=== PATIENT | female | born 2000 | race Caucasian/White ===

== ENCOUNTER 2025-04-27 22:56 | Observation (INO) | payer MEDICAID ==
--- NOTE | 2025-04-28 00:06 | DVH ---
ABDOMINAL ULTRASOUND CLINICAL HISTORY: r/o gallstones TECHNIQUE: Multiple grayscale and color Doppler ultrasound images were obtained of the abdomen. WID: COMPARISON: None FINDINGS: Liver and Biliary System: Increased echogenicity, Mildly Enlarged measuring 18.2 cm. No focal hepat ic observations. No intrahepatic bile duct dilatation. The common duct measures 0.4 cm at the tyson hepatis. The gallbladder is contracted with wall measuring 3.8 mm. No cholelithiasis or sludge. S onographic Chavez's sign is negative. Pancreas: Not well seen due to overlying bowel gas Kidneys: The right kidney is 10.4 cm . No hydronephrosis, increased echogenicity, shadowing stone, or focal lesion. IMPRESSION: 1. Mild hepatomegaly with hepatic steatosis. 2. No acute cholecystitis or biliary ductal dilatation. 3. No right hydronephrosis.
[2025-04-28] MEDS ORDERED: PREN-96 PO (00:42)
--- NOTE | 2025-04-28 01:33 | DVHDS2 ---
Physician Discharge Progress N Final Diagnosis: Mild hepatomegaly with hepatic steatosis Secondary Diagnosis: with IUP at 34w2d Problems List: (1) Acute fatty liver of in third trimester Operations or Procedures: Operations or Procedures SUBJECTIVE Cherelle Millan is a 24 yo with IUP at 34w2d presenting with upper R quadrant pain Patient states that around 1900 she began to experience intense pain in her upper R abdominal quadrant. She describes it as sharp and constant. Denies blurry vision or other vision changes, denies nausea, and denies headache. Patient states she ate very poorly today. She had cook islander toast sticks and pancakes for breakfast and country friend chicken for dinner. Denies feeling any UCs, denies leaking fluid, denies vaginal bleeding, and states positive movement. Patient was worried it could be pre-eclampsia LMP: 08/31/24 EDC: 06/07/25 Review of Systems: Neuro: No complaints Heart: No complaints Lungs: No complaints GI: 8/10 sharp pain in upper R quadrant : No complaints Skin: No complaints Extremities: No complaints OBJECTIVE VSS FHR: Baseline: 145 Variability: Moderate Accelerations: Present Decelerations: Absent Category: 1 UCs: none noted Neuro: A&O x4. No apparent distress. Affect appropriate Heart: Regular rate and rhythm Lungs: Clear bilaterally GI: Gravid. Tenderness in upper R quadrant Skin: Dry and intact. No rashes or lesions Extremities: Cap refill WNL. Abdominal US performed: See US report ASSESSMENT 24 yo with IUP at 34w2d Not in labor Category 1 Tracing Fatty liver PLAN -Extensively discussed fatty liver and appropriate diet/lifestyle to alleviate symptoms. Discussed pre-eclampsia warning signs. Answered all patient questions and concerns. -Discussed labor precautions and kick counts. Answered all patient questions and concerns. Patient verbalizes understanding Other Interventions Other Interventions ABDOMINAL ULTRASOUND CLINICAL HISTORY: r/o gallstones TECHNIQUE: Multiple grayscale and color Doppler ultrasound images were obtained of the abdomen. WID: COMPARISON: None FINDINGS: Liver and Biliary System: Increased echogenicity, Mildly Enlarged measuring 18.2 cm. No focal hepatic observations. No intrahepatic bile duct dilatation. The common duct measures 0.4 cm at the tyson hepatis. The gallbladder is contracted with wall measuring 3.8 mm. No cholelithiasis or sludge. Sonographic Chavez's sign is negative. Pancreas: Not well seen due to overlying bowel gas Kidneys: The right kidney is 10.4 cm . No hydronephrosis, increased echogenicity, shadowing stone, or focal lesion. IMPRESSION: 1. Mild hepatomegaly with hepatic steatosis. 2. No acute cholecystitis or biliary ductal dilatation. 3. No right hydronephrosis. Condition on Discharge: Good Disposition: Home Discharge Instructions: Diet: See Comment (Low fat) Diet comment: low fat Activity: No Restrictions, As Tolerated Follow Up/Referral: KEEP CURRENT APPOINTMENT WITH DR PANIAGUA Medications: CONTINUE TAKING ALL CURRENT MEDICATIONS Follow Up Care: Discharge Statement: "Patient was advised to return to the ER or call 911 if any headaches, dizziness, shortness of breath, chest pain, abdominal pain, bleeding, fevers, or worsening of medical condition. Patient was counseled about treatment plan, medications, possible side effects, patientverbalized understanding. All questions were answered to the best of my ability. This discharge took greater then 30 minutes in planning, reviewing documentation, counseling the patient, and discussing with other team members." Visit Coding OBGYN Date of Service: Apr 28, 2025 Billing Provider: LSI ANN CNM OPERATIONS SUPERVISOR 2ND SHIFT Common Visit Codes: [id number] INP/OBS CARE (HIGH) OPERATIONS SUPERVISOR 2ND SHIFT Procedure Codes: 94322-28- NON-STRESS TEST LIS ANN CNM Apr 28, 2025 01:33
== END 2025-04-28 00:52 | disposition home or self-care (01) ==
LOC: LDRP 22:56
PROVIDERS: ADMIT Obstetrics & Gynecology; ATTEND Obstetrics & Gynecology
DX: O26.613 Liver and biliary tract disorders in pregnancy, third trimester (principal); K76.0 Fatty (change of) liver, not elsewhere classified; Z3A.34 34 weeks gestation of pregnancy; Z98.890 Other specified postprocedural states
CPT/HCPCS: 59025; 76705; 81002; 94760; G0378

== ENCOUNTER 2025-05-24 08:29 | Observation (INO) | payer MEDICAID ==
[~2025-05-24 08:29] MED LIST: PREN-96 PO
[2025-05-24 08:56] LABS: Hematocrit 38.1 % (36.0-46.0); Hemoglobin 12.9 g/dL (12.2-16.2); Mean Corpuscular Hemoglobin 29.1 pg (28.0-32.0); Mean Corpuscular Volume 86.0 fL (80.0-100.0); Nucleated Red Blood Cells % 0.0 %
[2025-05-24 08:59] LABS: Urine Protein, UAD Negative (Negative)
[2025-05-24 09:09] LABS: Protein, Urine 16.6 mg/dL (1-14)
[2025-05-24 09:14] LABS: Albumin 4.0 g/dL (3.2-4.8); Anion Gap 13 (5-15); Calcium 9.3 mg/dL (8.7-10.4); Carbon Dioxide 22 mmol/L (20-31); Chloride 102 mmol/L (98-107); Potassium 3.9 mmol/L (3.5-5.1); Sodium 137 mmol/L (136-145); Total Protein 7.5 g/dL (5.7-8.2); Uric Acid 4.4 mg/dL (3.1-7.8)
[2025-05-24 09:15] LABS: Bilirubin, Total 0.3 mg/dL (0.2-1.0)
[2025-05-24 09:16] LABS: Alanine Aminotransferase < 9 U/L (7-40); Alkaline Phosphatase 220 U/L (46-116); BUN/Creatinine Ratio 10.2 (10.0-20.0); Blood Urea Nitrogen < 5 mg/dL (9-23); Glucose 120 mg/dL (74-106)
[2025-05-24 09:17] LABS: INR 0.94 (0.9-1.15); Partial Thromboplastin Time 26.0 SEC (24.5-34.5); Prothrombin Time 10.0 sec (9.3-11.8)
--- NOTE | 2025-05-24 09:35 | DVH ---
BIOPHYSICAL PROFILE HISTORY: PIH TECHNIQUE: Multiple transabdominal real-time grayscale sonographic images through the gravid uterus of the fetus with duplex Doppler color flow and M-mode spectral analysis FINDINGS: BIOPHYSICAL PROFILE: breathing score: 2 movement score: 2 tone score: 2 Quantitative CARIN score: 2 (CARIN: 18 Cm.) Total score: 8 The cervix is closed and measures 3.7 cm. Single live fetus in cephalic presentation. heart rate 148 beats per minute. Grade 2 anterior placenta without previa or abruption IMPRESSION: Biophysical profile score: 8
--- NOTE | 2025-05-24 12:51 | DVHDS2 ---
Physician Discharge Progress N Final Diagnosis: pih Operations or Procedures: Operations or Procedures nst reactive reviwed,sono Condition on Discharge: Good Disposition: Home Discharge Instructions: Diet: Regular Activity: No Restrictions, As Tolerated Medications: na Follow Up Care: Specialist: 2d for induction Discharge Statement: "Patient was advised to return to the ER or call 911 if any headaches, dizziness, shortness of breath, chest pain, abdominal pain, bleeding, fevers, or worsening of medical condition. Patient was counseled about treatment plan, medications, possible side effects, patientverbalized understanding. All questions were answered to the best of my ability. This discharge took greater then 30 minutes in planning, reviewing do cumentation, counseling the patient, and discussing with other team members." Visit Coding OBGYN Date of Service: May 24, 2025 Billing Provider: EMERALD PANIAGUA DO EMERGENCY VETERINARY TECHNICIAN Common Visit Codes: [id number] OBS CARE (HIGH) EMERGENCY VETERINARY TECHNICIAN Procedure Codes: 51117-93- NON-STRESS TEST EMERALD PANIAGUA DO May 24, 2025 12:51
== END 2025-05-24 11:00 | disposition home or self-care (01) ==
LOC: LDRP 08:29
PROVIDERS: ADMIT Obstetrics & Gynecology; ATTEND Obstetrics & Gynecology
DX: O13.3 Gestational [pregnancy-induced] hypertension without significant proteinuria, third trimester (principal); Z3A.38 38 weeks gestation of pregnancy; Z98.890 Other specified postprocedural states
CPT/HCPCS: 36415; 59025; 76819; 80053; 81001; 81002; 82570; 84156; 84550; 85025; 85610; 85730; 94760; G0378

== ENCOUNTER 2025-05-26 03:13 | Inpatient (IN) | payer MEDICAID ==
[~2025-05-26] VITALS: Ht 157.5 cm; Wt 88.9 kg
[2025-05-26] MEDS ORDERED: NALBUPHINE HCL 10 MG/1ml INJECTION IV PRN (04:30)
[2025-05-26] MEDS ORDERED: NALBUPHINE HCL 10 MG/1ml INJECTION IM PRN (04:30)
[2025-05-26] MEDS ORDERED: LIDOCAINE 2%HCL (LOCAL ANESTH.) INJ 20ML MDV IJ PRN (04:30)
[2025-05-26] MEDS: LACTATED RINGER'S 1,000 ML IV SCH (05:05)
[2025-05-26 05:17] LABS: Amphetamine Screen, Urine Neg (NEGATIVE); Barbiturate Scree,Urine Neg (NEGATIVE); Benzodiazephine Screen, Urine Neg (NEGATIVE); Cannabinoid Screen, Urine Neg (NEGATIVE); Cocaine Screen, Urine Neg (NEGATIVE); Opiate Scree,Urine Neg (NEGATIVE); Phencyclidine Screen, Urine Neg (NEGATIVE)
[2025-05-26 05:23] LABS: Fern Testing Positive
[2025-05-26 05:28] LABS: Urine Protein, UAD TRACE (Negative)
[2025-05-26] MEDS: DERMOPLAST 60ML BOTTLE TOP PRN (05:35)
[2025-05-26] MEDS: PHISODERM TOP SOLN 240ML BTL TOP PRN (05:35)
[2025-05-26] MEDS: WITCH HAZEL-GLYCERIN PAD TOP PRN (05:35)
[2025-05-26 05:40] LABS: Hematocrit 36.5 % (36.0-46.0); Hemoglobin 12.7 g/dL (12.2-16.2); Mean Corpuscular Hemoglobin 29.8 pg (28.0-32.0); Mean Corpuscular Volume 85.9 fL (80.0-100.0); Nucleated Red Blood Cells % 0.2 %
--- NOTE | 2025-05-26 05:47 | DVHHP2 ---
OB CC & HPI Date Date of Admission: May 26, 2025 Patient Identification: : 2 Para: 1 EDC: Jun 07, 2025 EGA: 38w 2d Chief Complaints: Reason for admission: rupture of membranes Other reason for admission: Contractions Admission Nurse Assessment Rev: Yes History of Present Complaints > 24yo G2, 1001 at 38weeks EGA presents with report of leakage of fluid at 01:00 today. > Normal FM, no SALCIDO, vision changes or epigastric pain > Had care with Dr. Keen > complicated by Intrahepatic cholestasis of ; scheduled to come in for IOL today at 10:00 > latest US EFW on 05/24/25 7Lbs 5oz Past Medical History Cardiac: No pertinent Hx Pulmonary: No pertinent Hx Central Nervous System: No pertinent Hx GI: No pertinent Hx Hemotology/Oncology: No pertinent Hx Hepatobiliary: No pertinent Hx Psychiatric: No pertinent Hx Musculoskeletal: No pertinent Hx Rheumotologic: No pertinent Hx Infectious Disease: No peritnent Hx ENT: No pertinent Hx Renal/: No pertinent Hx Endocrine: No pertinent Hx Dermatology: No pertinent Hx Past Surgical History: No pertinent Hx OB History OB History Care: Good Care Ultrasounds: Normal mid trimester US Obstetrical Complications: None, Other (ICP) Medical Complications: None Other Concerns: Intrahepatic Cholestasis of Allergies: Coded Allergies: NO KNOWN ALLERGIES (Unverified , 05/26/25) Home Meds Reported Medications Vit W/ Ferrous Fumara ( One Daily) Daily Tab, 1 TAB PO DAILY, #90 TAB 3 Refills 04/28/25 Current Medications Current Medications Medications (Trade) Dose Ordered Sig/Zac Route PRN Reason Start Time Stop Time Status Last Admin Lactated Ringer's 1,000 ml @ 125 mls/hr Q8H IV 05/26/25 04:30 05/26/25 05:05 Nalbuphine HCl (Nubain) 10 mg Q4HP PRN IM MODERATE PAIN (4-6 PAIN SCALE) 05/26/25 04:30 Nalbuphine HCl (Nubain) 10 mg Q4HP PRN IV MODERATE PAIN (4-6 PAIN SCALE) 05/26/25 04:30 Witch Draa (Tucks) 1 pad PRN PRN TOP PERINEAL AREA DISCOMFORT 05/26/25 04:30 Sodium Lauryl Sulfate (Phisoderm) 240 ml PRN PRN TOP PERINEAL AREA DISCOMFORT 05/26/25 04:30 Benzocaine (Dermoplast) 1 applic PRN PRN TOP PERINEAL AREA DISCOMFORT 05/26/25 04:30 Lidocaine HCl (Xylocaine) 40 ml ONCE PRN IJ PERINEAL AREA DISCOMFORT 05/26/25 04:30 Family & Social History Family/Social History Past Family/Social History: Non pertinent Blood Type: O+ Rubella: immune RPR/VDRL: Negative GBS Status: Negative HBsAG: Negative Review of Systems Constitutional: No symptom reported Ears, Nose, & Throat: No symptom reported Eyes: No symptom reported Pulmonary/Respiratory: No symptom reported Cardiovascular: No symptom reported Gastrointestinal: No symptom reported Genitourinary: No symptom reported Musculoskeletal: No symptom reported Skin: No symptom reported Psychiatric: No symptom reported Endocrine: No symptom reported Hemotologic/Lymphatic: No symptom reported OB Admission Exam Physical Exam Vitals: VSS, see Nursing documentation HEENT: TMs Normal, Fontanelles Normal, Nasal Mucosa Normal, Eyes non-injected, Oropharynx Normal, PERRLA, Moist Membranes, EOMI Heart: Rhythm Normal Lungs: Clear Abdomen: Gravid (Non-tender topalpation) Extremities: Normal Reflexes: Normal Cervical Dilatation: 1cm Station: -3 Membranes: Ruptured Amniotic Fluid: Clear Heart Rate: 130's Decelerations: No Decelerations Research Consultant Variability: Average (6-25) Contractions on Admission: < 5 Minutes Apart Date/Time Contractions Began: 05/26/25 03:00 Frequency of Contractions: 2-5 Duration: 70 Intensity: Mild OB Plan Plan Admitting Diagnosis: IUP at 38w 2d ICP Rupture of Membrane Plan: Expectant Management, Other (Cervical ripening and augmentation if and when indcated /needed) Other Plan: Informed consent obtained. Risk of pain, bleeding, infection, discussed with the patient and partner Consent for possible blood transfusion obtained. All questions answered. Admit to Place Routine L&D admission orders Misoprostol per protocol if contractions space out EFM per policy & protocol Intrauterine resuscitation PRN Labor analgesia PRN Encourage frequent position change and ambulation to facilitate labor & descent Supportive Care Anticipate Visit Coding OBGYN Date of Service: May 26, 2025 Billing Provider: BAYLEE GE CNM SINGLE NEEDLE TUFTING MACHINE OPERATOR Common Visit Codes: [id number] INP/OBS CARE (HIGH) BAYLEE GE CNM May 26, 2025 05:47
[2025-05-26 06:01] LABS: INR 0.91 (0.9-1.15); Partial Thromboplastin Time 27.4 SEC (24.5-34.5); Prothrombin Time 9.7 sec (9.3-11.8)
[2025-05-26 06:31] LABS: Albumin 3.8 g/dL (3.2-4.8); Anion Gap 13 (5-15); BUN/Creatinine Ratio 19.4 (10.0-20.0); Bilirubin, Total 0.4 mg/dL (0.2-1.0); Glucose 81 mg/dL (74-106); Total Protein 7.3 g/dL (5.7-8.2)
[2025-05-26 06:32] LABS: Alkaline Phosphatase 211 U/L (46-116); Blood Urea Nitrogen 7 mg/dL (9-23); Carbon Dioxide 19 mmol/L (20-31); Chloride 106 mmol/L (98-107); Potassium 3.7 mmol/L (3.5-5.1); Sodium 138 mmol/L (136-145)
[2025-05-26 06:33] LABS: Alanine Aminotransferase < 9 U/L (7-40); Calcium 8.7 mg/dL (8.7-10.4)
--- NOTE | 2025-05-26 07:00 | DVHPN2 ---
Chief Complaints Patient reports: No new complaints Nursing reports: No new complaints Objective Medications Current Medications Medications (Trade) Dose Ordered Sig/Zac Route PRN Reason Start Time Stop Time Status Last Admin Benzocaine (Dermoplast) 1 applic PRN PRN TOP PERINEAL AREA DISCOMFORT 05/26/25 04:30 05/26/25 05:35 Lactated Ringer's 1,000 ml @ 125 mls/hr Q8H IV 05/26/25 04:30 05/26/25 05:05 Lidocaine HCl (Xylocaine) 40 ml ONCE PRN IJ PERINEAL AREA DISCOMFORT 05/26/25 04:30 Nalbuphine HCl (Nubain) 10 mg Q4HP PRN IM MODERATE PAIN (4-6 PAIN SCALE) 05/26/25 04:30 Nalbuphine HCl (Nubain) 10 mg Q4HP PRN IV MODERATE PAIN (4-6 PAIN SCALE) 05/26/25 04:30 Sodium Lauryl Sulfate (Phisoderm) 240 ml PRN PRN TOP PERINEAL AREA DISCOMFORT 05/26/25 04:30 05/26/25 05:35 Witch Dara (Tucks) 1 pad PRN PRN TOP PERINEAL AREA DISCOMFORT 05/26/25 04:30 05/26/25 05:35 Others VE-1CM/40/-3 CLEAR FLD Studies Laboratory Tests 05/26/25 04:55 Test 05/26/25 04:55 Range/Units Serum Glucose 81 74-106 mg/dL Ass/Plan Assessment SROM Plan SROM Visit Coding OBGYN Date of Service: May 26, 2025 Billing Provider: EMERALD PANIAGUA DO MANAGER OF BUSINESS OPERATIONS Common Visit Codes: [id number] INP/OBS CARE (HIGH) MANAGER OF BUSINESS OPERATIONS Procedure Codes: 64734-77- NON-STRESS TEST EMERALD PANIAGUA DO May 26, 2025 07:00
[2025-05-26] MEDS: ceFAZolin 1GM/50ML 50 ML IV SCH (09:39)
[2025-05-26] MEDS ORDERED: NALOXONE HCL 0.4 MG/ML VIAL IV ONE (16:00)
--- NOTE | 2025-05-26 16:13 | DVHPN2 ---
Chief Complaints Patient reports: No new complaints Nursing reports: No new complaints Objective Medications Current Medications Medications (Trade) Dose Ordered Sig/Zac Route PRN Reason Start Time Stop Time Status Last Admin Benzocaine (Dermoplast) 1 applic PRN PRN TOP PERINEAL AREA DISCOMFORT 05/26/25 04:30 05/26/25 05:35 Cefazolin Sodium 50 ml @ 100 mls/hr Q8H IV 05/26/25 09:15 05/26/25 09:39 Lactated Ringer's 1,000 ml @ 125 mls/hr Q8H IV 05/26/25 04:30 05/26/25 12:44 Lidocaine HCl (Xylocaine) 40 ml ONCE PRN IJ PERINEAL AREA DISCOMFORT 05/26/25 04:30 Misoprostol (Cytotec) 50 mcg Q4HPRN PRN PO CERVICAL RIPENING 05/26/25 10:15 05/26/25 14:43 Nalbuphine HCl (Nubain) 10 mg Q4HP PRN IM MODERATE PAIN (4-6 PAIN SCALE) 05/26/25 04:30 Nalbuphine HCl (Nubain) 10 mg Q4HP PRN IV MODERATE PAIN (4-6 PAIN SCALE) 05/26/25 04:30 Sodium Lauryl Sulfate (Phisoderm) 240 ml PRN PRN TOP PERINEAL AREA DISCOMFORT 05/26/25 04:30 05/26/25 05:35 Witch Dara (Tucks) 1 pad PRN PRN TOP PERINEAL AREA DISCOMFORT 05/26/25 04:30 05/26/25 05:35 Others ve-4cm/60/-2 Studies Laboratory Tests 05/26/25 04:55 Test 05/26/25 04:55 Range/Units Serum Glucose 81 74-106 mg/dL Ass/Plan Assessment SROM Plan getting epidural supportive care Visit Coding OBGYN Date of Service: May 26, 2025 Billing Provider: EMERALD PANIAGUA DO SEWING TECHNIQUES DEMONSTRATOR Common Visit Codes: [id number] OBS CARE (HIGH) SEWING TECHNIQUES DEMONSTRATOR Procedure Codes: 57132-73- NON-STRESS TEST EMERALD PANIAGUA DO May 26, 2025 16:13
[2025-05-26] MEDS: ROPIVACAINE HCL 100 ML ONE ×2 (16:28→23:05)
--- NOTE | 2025-05-26 20:48 | DVHPN2 ---
CNM Labor Progress Note Date and Time Seen Date Seen: May 26, 2025 Time Seen: 20:00 Subjective Patient reports: No new complaints Subjective Comment HPI: 24yo (0,0,0,0)IUP@38.2wks Admitted for PROM 05/26/2025 @ 0200 Misoprostol 50 mcg X2 given currently Received and epidural for pain management Monitoring Method Monitoring Method: External Heart Rate Heart Rate Baseline: 145 Heart Rate Variability: Moderate Presence of FHR Accelerations: Yes Presence of FHR Decelerations: No Changes in Trends of Patterns: No Are all 5 Components of the FH: Yes Contractions Contractions Frequency: Other Duration of Contraction: 90 Contractions Intensity: Moderate Contractions Resting Tone: Relaxed Membranes Membranes: Ruptured Amniotic Fluid Color: Clear Vaginal Exam Vag Exam Deferred: Yes Vaginal Exam Presentation: VTX Medications Medications - Pitocin: No Medication - Epidural: Yes Medication - Other Misoprostol 50 mcg X2 doses Lab Results Lab Results Current Medications Medications (Trade) Dose Ordered Sig/Zac Start Time Stop Time Status Last Admin Dose Admin Lactated Ringer's 1,000 ml @ 125 mls/hr Q8H 05/26/25 04:30 05/26/25 17:27 125 MLS/HR Nalbuphine HCl (Nubain) 10 mg Q4HP PRN 05/26/25 04:30 Nalbuphine HCl (Nubain) 10 mg Q4HP PRN 05/26/25 04:30 Witch Dara (Tucks) 1 pad PRN PRN 05/26/25 04:30 05/26/25 05:35 1 PAD Sodium Lauryl Sulfate (Phisoderm) 240 ml PRN PRN 05/26/25 04:30 05/26/25 05:35 240 ML Benzocaine (Dermoplast) 1 applic PRN PRN 05/26/25 04:30 05/26/25 05:35 1 APPLIC Lidocaine HCl (Xylocaine) 40 ml ONCE PRN 05/26/25 04:30 Oxytocin 500 ml @ 999 mls/hr Q31M ONCE 05/26/25 04:30 05/26/25 05:00 DC Oxytocin 500 ml @ 125 mls/hr Q4H ONCE 05/26/25 05:00 05/26/25 08:59 DC Cefazolin Sodium 50 ml @ 100 mls/hr Q8H 05/26/25 09:15 05/26/25 17:23 100 MLS/HR Misoprostol (Cytotec) 50 mcg Q4HPRN PRN 05/26/25 10:15 05/26/25 14:43 50 MCG Naloxone HCl (Narcan) 0.2 mg PRN ONCE 05/26/25 16:00 05/26/25 16:01 DC Ephedrine Sulfate (ePHEDrine SULFATE) 10 mg PRN ONCE 05/26/25 16:00 05/26/25 16:01 DC Laboratory Tests Test 05/26/25 04:55 05/26/25 04:00 Range/Units White Blood Count 11.1 H 4.4-10.8 10^3/uL Red Blood Count 4.25 4.0-5.20 10^6/uL Hemoglobin 12.7 12.2-16.2 g/dL Hematocrit 36.5 36.0-46.0 % Mean Corpuscular Volume 85.9 80.0-100.0 fL Mean Corpuscular Hemoglobin 29.8 28.0-32.0 pg Mean Corpuscular Hemoglobin Concent 34.7 32.0-36.0 g/dL Red Cell Distribution Width 14.1 11.8-14.3 % Platelet Count 228 140-450 10^3/uL Mean Platelet Volume 8.5 6.9-10.8 fL Neutrophils (%) (Auto) 70.9 37.0-80.0 % Lymphocytes (%) (Auto) 22.3 10.0-50.0 % Monocytes (%) (Auto) 5.8 0.0-12.0 % Eosinophils (%) (Auto) 0.8 0.0-7.0 % Basophils (%) (Auto) 0.2 0.0-2.0 % Neutrophils # (Auto) 7.9 1.6-8.6 10 ^3/uL Lymphocytes # (Auto) 2.5 0.4-5.4 10 ^3/uL Monocytes # (Auto) 0.6 0-1.3 10 ^3/uL Eosinophils # (Auto) 0.1 0-0.8 10 ^3/uL Basophils # (Auto) 0 0-0.2 10 ^3/uL Nucleated Red Blood Cells 0.2 % Prothrombin Time 9.7 9.3-11.8 sec Prothrombin Time INR 0.91 0.9-1.15 Activated Partial Thromboplast Time 27.4 24.5-34.5 SEC Sodium Level 138 136-145 mmol/L Potassium Level 3.7 3.5-5.1 mmol/L Chloride Level 106 98-107 mmol/L Carbon Dioxide Level 19 L 20-31 mmol/L Anion Gap 13 5-15 Blood Urea Nitrogen 7 L 9-23 mg/dL Creatinine 0.36 L 0.550-1.02 mg/dL Glomerular Filtration Rate Calc 144 >90 mL/min BUN/Creatinine Ratio 19.4 10.0-20.0 Serum Glucose 81 74-106 mg/dL Calcium Level 8.7 8.7-10.4 mg/dL Total Bilirubin 0.4 0.2-1.0 mg/dL Aspartate Amino Transferase (AST) 9 L 13-40 U/L Alanine Aminotransferase (ALT) < 9 7-40 U/L Alkaline Phosphatase 211 H 46-116 U/L Total Protein 7.3 5.7-8.2 g/dL Albumin 3.8 3.2-4.8 g/dL Treponema pallidum Antibody Non-reactive Negative Hepatitis C Antibody Negative Negative Urine Color Light-yellow Yellow Urine Clarity Turbid H Clear Urine pH 7.0 5.0-9.0 Urine Specific [place] 1.025 1.001-1.035 Urine Protein Trace H Negative Urine Ketones Negative Negative Urine Blood Trace H Negative /uL Urine Nitrite Negative Negative Urine Bilirubin Negative Negative Urine Urobilinogen Normal Negative mg/dL Urine Leukocyte Esterase 1+ Negative /uL Urine RBC 17 0 - 4 /hpf Urine Microscopic WBC 32 H 0-5 /HPF Urine Squamous Epithelial Cells Mod <5 /hpf Urine Bacteria None seen None Seen /hpf Urine Mucus Few None Seen Urine Glucose Normal Normal mg/dL Amniotic Fluid Ferning Test Positive Placental Urqui-6-Dujztqprkpnno Positive Urine Opiates Screen Neg NEGATIVE Urine Fentanyl Screen Neg NEGATIVE Urine Barbiturates Screen Neg NEGATIVE Urine Phencyclidine Screen Neg NEGATIVE Urine Amphetamines Screen Neg NEGATIVE Urine Benzodiazepines Screen Neg NEGATIVE Urine Cocaine Screen Neg NEGATIVE Urine Cannabinoids Screen Neg NEGATIVE Assessment Assessment Assessment 24yo IUP@38.2wks PROM @ 0200 05/26/25 Category I EFM Epidural for pain Ancef 2 gm Q8H / 2 doses given Uterine contractions every 2-3 min Unable to continue misoprostal GBS negative Plan Reevaluate @ 2300 Placed IUPC if possible Continue with ANBX Anticipate Plan Plan discussed with: Patient Visit Coding OBGYN Date of Service: May 26, 2025 Billing Provider: SUMIT GARCIA CNM TENDER LABOR Common Visit Codes: [id number] INP/OBS CARE (HIGH) SUMIT GARCIA CNMNov 2024 20:48
--- NOTE | 2025-05-26 23:04 | DVHPN2 ---
CNM Labor Progress Note Date and Time Seen Date Seen: May 26, 2025 Time Seen: 22:55 Subjective Patient reports: No new complaints Subjective Comment HPI: 24yo (0,0,0,0)IUP@38.2wks Admitted for PROM 05/26/2025 @ 0200 Misoprostol 50 mcg X2 given currently Received and epidural for pain management At bedside for IUPC Placement Monitoring Method Monitoring Method: Internal, External Heart Rate Heart Rate Baseline: 145 Heart Rate Variability: Moderate Presence of FHR Accelerations: Yes Presence of FHR Decelerations: No Changes in Trends of Patterns: No Are all 5 Components of the FH: Yes Contractions Contractions Frequency: Other Duration of Contraction: 90 Contractions Intensity: Moderate Contractions Resting Tone: Relaxed If NO What Corrective Measures: IUPC Placed Membranes Membranes: Ruptured Amniotic Fluid Color: Clear Vaginal Exam Vag Exam Deferred: Yes Vaginal Exam Dilation: 4 Vaginal Exam Effacement: 70 Vaginal Exam Station: 0 Vaginal Exam Presentation: VTX Vaginal Exam Show: Moderate Medications Medications - Pitocin: No Medication - Epidural: Yes Medication - Other Misoprostol 50 mcg oral X2 doses Lab Results Lab Results Current Medications Medications (Trade) Dose Ordered Sig/Zac Start Time Stop Time Status Last Admin Dose Admin Lactated Ringer's 1,000 ml @ 125 mls/hr Q8H 05/26/25 04:30 05/26/25 17:27 125 MLS/HR Nalbuphine HCl (Nubain) 10 mg Q4HP PRN 05/26/25 04:30 Nalbuphine HCl (Nubain) 10 mg Q4HP PRN 05/26/25 04:30 Martine Diamond (Tucks) 1 pad PRN PRN 05/26/25 04:30 05/26/25 05:35 1 PAD Sodium Lauryl Sulfate (Phisoderm) 240 ml PRN PRN 05/26/25 04:30 05/26/25 05:35 240 ML Benzocaine (Dermoplast) 1 applic PRN PRN 05/26/25 04:30 05/26/25 05:35 1 APPLIC Lidocaine HCl (Xylocaine) 40 ml ONCE PRN 05/26/25 04:30 Oxytocin 500 ml @ 999 mls/hr Q31M ONCE 05/26/25 04:30 05/26/25 05:00 DC Oxytocin 500 ml @ 125 mls/hr Q4H ONCE 05/26/25 05:00 05/26/25 08:59 DC Cefazolin Sodium 50 ml @ 100 mls/hr Q8H 05/26/25 09:15 05/26/25 17:23 100 MLS/HR Misoprostol (Cytotec) 50 mcg Q4HPRN PRN 05/26/25 10:15 05/26/25 14:43 50 MCG Naloxone HCl (Narcan) 0.2 mg PRN ONCE 05/26/25 16:00 05/26/25 16:01 DC Ephedrine Sulfate (ePHEDrine SULFATE) 10 mg PRN ONCE 05/26/25 16:00 05/26/25 16:01 DC Laboratory Tests Test 05/26/25 04:55 05/26/25 04:00 Range/Units White Blood Count 11.1 H 4.4-10.8 10^3/uL Red Blood Count 4.25 4.0-5.20 10^6/uL Hemoglobin 12.7 12.2-16.2 g/dL Hematocrit 36.5 36.0-46.0 % Mean Corpuscular Volume 85.9 80.0-100.0 fL Mean Corpuscular Hemoglobin 29.8 28.0-32.0 pg Mean Corpuscular Hemoglobin Concent 34.7 32.0-36.0 g/dL Red Cell Distribution Width 14.1 11.8-14.3 % Platelet Count 228 140-450 10^3/uL Mean Platelet Volume 8.5 6.9-10.8 fL Neutrophils (%) (Auto) 70.9 37.0-80.0 % Lymphocytes (%) (Auto) 22.3 10.0-50.0 % Monocytes (%) (Auto) 5.8 0.0-12.0 % Eosinophils (%) (Auto) 0.8 0.0-7.0 % Basophils (%) (Auto) 0.2 0.0-2.0 % Neutrophils # (Auto) 7.9 1.6-8.6 10 ^3/uL Lymphocytes # (Auto) 2.5 0.4-5.4 10 ^3/uL Monocytes # (Auto) 0.6 0-1.3 10 ^3/uL Eosinophils # (Auto) 0.1 0-0.8 10 ^3/uL Basophils # (Auto) 0 0-0.2 10 ^3/uL Nucleated Red Blood Cells 0.2 % Prothrombin Time 9.7 9.3-11.8 sec Prothrombin Time INR 0.91 0.9-1.15 Activated Partial Thromboplast Time 27.4 24.5-34.5 SEC Sodium Level 138 136-145 mmol/L Potassium Level 3.7 3.5-5.1 mmol/L Chloride Level 106 98-107 mmol/L Carbon Dioxide Level 19 L 20-31 mmol/L Anion Gap 13 5-15 Blood Urea Nitrogen 7 L 9-23 mg/dL Creatinine 0.36 L 0.550-1.02 mg/dL Glomerular Filtration Rate Calc 144 >90 mL/min BUN/Creatinine Ratio 19.4 10.0-20.0 Serum Glucose 81 74-106 mg/dL Calcium Level 8.7 8.7-10.4 mg/dL Total Bilirubin 0.4 0.2-1.0 mg/dL Aspartate Amino Transferase (AST) 9 L 13-40 U/L Alanine Aminotransferase (ALT) < 9 7-40 U/L Alkaline Phosphatase 211 H 46-116 U/L Total Protein 7.3 5.7-8.2 g/dL Albumin 3.8 3.2-4.8 g/dL Treponema pallidum Antibody Non-reactive Negative Hepatitis C Antibody Negative Negative Urine Color Light-yellow Yellow Urine Clarity Turbid H Clear Urine pH 7.0 5.0-9.0 Urine Specific [place] 1.025 1.001-1.035 Urine Protein Trace H Negative Urine Ketones Negative Negative Urine Blood Trace H Negative /uL Urine Nitrite Negative Negative Urine Bilirubin Negative Negative Urine Urobilinogen Normal Negative mg/dL Urine Leukocyte Esterase 1+ Negative /uL Urine RBC 17 0 - 4 /hpf Urine Microscopic WBC 32 H 0-5 /HPF Urine Squamous Epithelial Cells Mod <5 /hpf Urine Bacteria None seen None Seen /hpf Urine Mucus Few None Seen Urine Glucose Normal Normal mg/dL Amniotic Fluid Ferning Test Positive Placental Lokao-4-Qzkyimhvmgnjz Positive Urine Opiates Screen Neg NEGATIVE Urine Fentanyl Screen Neg NEGATIVE Urine Barbiturates Screen Neg NEGATIVE Urine Phencyclidine Screen Neg NEGATIVE Urine Amphetamines Screen Neg NEGATIVE Urine Benzodiazepines Screen Neg NEGATIVE Urine Cocaine Screen Neg NEGATIVE Urine Cannabinoids Screen Neg NEGATIVE Assessment Assessment Assessment 24yo IUP@38.2wks PROM @ 0200 05/26/25 Category I EFM Epidural for pain Ancef 2 gm Q8H / 2 doses given Uterine contractions every 2-3 min Unable to continue misoprostol Blood type : O positive GBS negative Plan Plan Plan IUPC placed @ 2255 SVE /0 Continued with P.O.C Having uterine contractions every 2-3 min noted with IUPC repositioned side to side in sim's position minimized vaginal exam Epidural for pain management ANBX for PROM If contractions should start to space apart then possibility to augment with Pitocin per protocol Anticipate Continue with P.O.C Dr Keen aware and updated Plan discussed with: Patient Visit Coding OBGYN Date of Service: May 26, 2025 Billing Provider: SUMIT GARCIA CNM SHOP STEWARD Common Visit Codes: [id number] OBS CARE (HIGH) SUMIT GARCIA CNMNov 2024 23:04
[2025-05-27] MEDS: LACT. RINGERS/OXYTOCIN 20UNITS 500 ML IV ONE ×2 (02:01→04:28)
[2025-05-27] MEDS: LACT. RINGERS/OXYTOCIN 20UNITS 1,000 ML IV SCH (02:40)
--- NOTE | 2025-05-27 03:39 | DVHPN2 ---
CNM Labor Progress Note Date and Time Seen Date Seen: May 27, 2025 Time Seen: 03:25 Subjective Patient reports: Other Subjective Comment Patient reports: No new complaints Subjective Comment HPI: 24yo (0,0,0,0)IUP@38.2wks Admitted for PROM 05/26/2025 @ 0200 Misoprostol 50 mcg X2 given currently Received and epidural for pain management At bedside for SVE , patient reports feeling pressure tracing cat 2 SVE C/C/+2 Monitoring Method Monitoring Method: Internal, External Heart Rate Heart Rate Baseline: 145 Heart Rate Variability: Moderate Presence of FHR Accelerations: Yes Presence of FHR Decelerations: Yes Heart Rate Type of Decel: Variable Decelerations, Late Decelerations Changes in Trends of Patterns: No Are all 5 Components of the FH: No If NO Corrective Measures Comp: yes Contractions Contractions Frequency: Other Duration of Contraction: 90 Contractions Intensity: Moderate Contractions Resting Tone: Relaxed Membranes Membranes: Ruptured Amniotic Fluid Color: Clear, Bloody Vaginal Exam Vag Exam Deferred: Yes Vaginal Exam Dilation: 10 Vaginal Exam Effacement: 100 Vaginal Exam Station: +2 Vaginal Exam Presentation: VTX Vaginal Exam Show: Moderate Medications Medications - Pitocin: Yes Medication - Epidural: Yes Lab Results Lab Results Current Medications Medications (Trade) Dose Ordered Sig/Zac Start Time Stop Time Status Last Admin Dose Admin Lactated Ringer's 1,000 ml @ 125 mls/hr Q8H 05/26/25 04:30 05/26/25 17:27 125 MLS/HR Nalbuphine HCl (Nubain) 10 mg Q4HP PRN 05/26/25 04:30 05/27/25 01:50 DC Nalbuphine HCl (Nubain) 10 mg Q4HP PRN 05/26/25 04:30 05/27/25 01:50 DC Witch Dara (Tucks) 1 pad PRN PRN 05/26/25 04:30 05/26/25 05:35 1 PAD Sodium Lauryl Sulfate (Phisoderm) 240 ml PRN PRN 05/26/25 04:30 05/26/25 05:35 240 ML Benzocaine (Dermoplast) 1 applic PRN PRN 05/26/25 04:30 05/26/25 05:35 1 APPLIC Lidocaine HCl (Xylocaine) 40 ml ONCE PRN 05/26/25 04:30 Oxytocin 500 ml @ 999 mls/hr Q31M ONCE 05/26/25 04:30 05/26/25 05:00 DC Oxytocin 500 ml @ 125 mls/hr Q4H ONCE 05/26/25 05:00 05/26/25 08:59 DC Cefazolin Sodium 50 ml @ 100 mls/hr Q8H 05/26/25 09:15 05/27/25 01:31 100 MLS/HR Misoprostol (Cytotec) 50 mcg Q4HPRN PRN 05/26/25 10:15 05/27/25 01:50 DC 05/26/25 14:43 50 MCG Naloxone HCl (Narcan) 0.2 mg PRN ONCE 05/26/25 16:00 05/26/25 16:01 DC Ephedrine Sulfate (ePHEDrine SULFATE) 10 mg PRN ONCE 05/26/25 16:00 05/26/25 16:01 DC Oxytocin 1,000 ml @ 6 ml/hr Q24H 05/27/25 02:30 05/27/25 02:40 6 ML/HR Laboratory Tests Test 05/26/25 04:55 05/26/25 04:00 Range/Units White Blood Count 11.1 H 4.4-10.8 10^3/uL Red Blood Count 4.25 4.0-5.20 10^6/uL Hemoglobin 12.7 12.2-16.2 g/dL Hematocrit 36.5 36.0-46.0 % Mean Corpuscular Volume 85.9 80.0-100.0 fL Mean Corpuscular Hemoglobin 29.8 28.0-32.0 pg Mean Corpuscular Hemoglobin Concent 34.7 32.0-36.0 g/dL Red Cell Distribution Width 14.1 11.8-14.3 % Platelet Count 228 140-450 10^3/uL Mean Platelet Volume 8.5 6.9-10.8 fL Neutrophils (%) (Auto) 70.9 37.0-80.0 % Lymphocytes (%) (Auto) 22.3 10.0-50.0 % Monocytes (%) (Auto) 5.8 0.0-12.0 % Eosinophils (%) (Auto) 0.8 0.0-7.0 % Basophils (%) (Auto) 0.2 0.0-2.0 % Neutrophils # (Auto) 7.9 1.6-8.6 10 ^3/uL Lymphocytes # (Auto) 2.5 0.4-5.4 10 ^3/uL Monocytes # (Auto) 0.6 0-1.3 10 ^3/uL Eosinophils # (Auto) 0.1 0-0.8 10 ^3/uL Basophils # (Auto) 0 0-0.2 10 ^3/uL Nucleated Red Blood Cells 0.2 % Prothrombin Time 9.7 9.3-11.8 sec Prothrombin Time INR 0.91 0.9-1.15 Activated Partial Thromboplast Time 27.4 24.5-34.5 SEC Sodium Level 138 136-145 mmol/L Potassium Level 3.7 3.5-5.1 mmol/L Chloride Level 106 98-107 mmol/L Carbon Dioxide Level 19 L 20-31 mmol/L Anion Gap 13 5-15 Blood Urea Nitrogen 7 L 9-23 mg/dL Creatinine 0.36 L 0.550-1.02 mg/dL Glomerular Filtration Rate Calc 144 >90 mL/min BUN/Creatinine Ratio 19.4 10.0-20.0 Serum Glucose 81 74-106 mg/dL Calcium Level 8.7 8.7-10.4 mg/dL Total Bilirubin 0.4 0.2-1.0 mg/dL Aspartate Amino Transferase (AST) 9 L 13-40 U/L Alanine Aminotransferase (ALT) < 9 7-40 U/L Alkaline Phosphatase 211 H 46-116 U/L Total Protein 7.3 5.7-8.2 g/dL Albumin 3.8 3.2-4.8 g/dL Treponema pallidum Antibody Non-reactive Negative Hepatitis C Antibody Negative Negative Urine Color Light-yellow Yellow Urine Clarity Turbid H Clear Urine pH 7.0 5.0-9.0 Urine Specific [place] 1.025 1.001-1.035 Urine Protein Trace H Negative Urine Ketones Negative Negative Urine Blood Trace H Negative /uL Urine Nitrite Negative Negative Urine Bilirubin Negative Negative Urine Urobilinogen Normal Negative mg/dL Urine Leukocyte Esterase 1+ Negative /uL Urine RBC 17 0 - 4 /hpf Urine Microscopic WBC 32 H 0-5 /HPF Urine Squamous Epithelial Cells Mod <5 /hpf Urine Bacteria None seen None Seen /hpf Urine Mucus Few None Seen Urine Glucose Normal Normal mg/dL Amniotic Fluid Ferning Test Positive Placental Yrtno-5-Kmfpjmtlzzubg Positive Urine Opiates Screen Neg NEGATIVE Urine Fentanyl Screen Neg NEGATIVE Urine Barbiturates Screen Neg NEGATIVE Urine Phencyclidine Screen Neg NEGATIVE Urine Amphetamines Screen Neg NEGATIVE Urine Benzodiazepines Screen Neg NEGATIVE Urine Cocaine Screen Neg NEGATIVE Urine Cannabinoids Screen Neg NEGATIVE Assessment Assessment Assessment SVE C/C/+2 Tracing Cat 2 24yo IUP@38.3wks PROM @ 0200 05/26/25 Epidural for pain Pitocin augmentation Currently 4 mu/min Ancef 2 gm Q8H / 2 doses given Uterine contractions every 2-3 min Blood type : O positive GBS negative Plan Plan Plan SVE C/C/+2 Decreased Pitocin 2 mu/min Start pushing with patient Tracing Cat 2 Epidural for pain management ANBX for PROM Anticipate Continue with P.O.C Plan discussed with: Patient, Other Visit Coding OBGYN Date of Service: May 27, 2025 Billing Provider: SUMIT GARCIA CNM G[employer] APPLIANCE SERVICER Common Visit Codes: [id number] OBS CARE (HIGH) SUMIT GARCIAMNov 2024 03:39
--- NOTE | 2025-05-27 05:22 | LDN2 ---
Labor and Delivery Note Date 05/27/25 Age 24 1 Para 1 AB 0 EDC 06/07/2025 Diagnosis Normal Spontaneous Vaginal Delivery Vaginal Delivery: VTX Vacuum Assisted: No Placenta: Spontaneous Sex: Female Weight 2880 gm Apgars Apgars 9 (1 min ) / 9 (5 min) Nuchal Cord Transected: No Amniotic Fluid: Clear Anesthesia Epidural Episiotomy: No Extension: No Repaired with 3-0 Vicryl 4-0 micro-Vicryl EBL 500 ML Labs Blood Bank 05/26/25 04:55: Blood Type O POSITIVE Complications None Comments/Significant Med Vida DELIVERY NOTE 05/27/2025 24y/o, delivered a viable Female infant by Normal Spontaneous Vaginal Delivery @ 0351 delivery CANDACE , placed skin to skin on pts chest. Cord clamped and cut after 2.5 min Cord blood sent. Intact 3-vessel cord Placenta delivered spontaneously, [place]. Pitocin IV bolus started. Placenta sent to pathology. Patient had labor epidural anesthesia. Cervix/vagina inspected. Cervix intact. Second degree vaginal laceration noted and was repaired with 3-0 Vicryl suture. Bilateral labial lacerations noted and repaired with 4.0 Micro Vicryl Suture Pitocin infusing uncomplicated Trickling of blood from lacerations noted TXA given IVPB Fundus at U, firm, midline, and light lochia. Misoprostol 800 mc given rectally QBL 500ml. VSS. Count correct x2. Patient to care and baby to couplet care, both stable. Rectal mucosa and sphincter intact. Rectal exam performed, WNL, Visit Coding OBGYN Date of Service: May 27, 2025 Billing Provider: SUMIT GARCIA CNM MANAGER [employer]AMES Common Visit Codes: [id number] INP/OBS CARE (LOW) SUMIT GARCIARIov 2024 05:22
[2025-05-27] MEDS: ACETAMINOPHEN 325 MG TAB PO PRN (06:54)
[2025-05-27 11:24] VITALS: BP 110/76; PULSE 103; RESP 18; TEMP 98.4; O2SAT 96
[2025-05-27] MEDS ORDERED: IBUPROFEN 800 MG TAB PO SCH (12:00)
[2025-05-27 15:30] VITALS: BP 111/74; PULSE 92; RESP 18; TEMP 98.3; O2SAT 99
[2025-05-27] MEDS: IBUPROFEN 800 MG TAB PO PRN (16:59)
[2025-05-27] MEDS: DOCUSATE SOD 100 MG CAP PO SCH (22:13)
[2025-05-27 23:10] VITALS: BP 114/67; PULSE 75; RESP 16; TEMP 97.8; O2SAT 98
[2025-05-28 03:00] VITALS: BP 119/79; PULSE 74; RESP 17; TEMP 97.8; O2SAT 96
[2025-05-28 09:17] VITALS: BP 106/69; PULSE 84; RESP 17; TEMP 97.9; O2SAT 98
[2025-05-28] MEDS ORDERED: TRANEXAMIC ACID 1,000 mg/10ml INJ VIAL IV ONE (09:17)
--- NOTE | 2025-05-28 11:08 | DVHDS2 ---
Discharge Summary Date of Admission May 26, 2025 at 04:25 Date of Discharge: May 28, 2025 Admitting Diagnosis Status post no complications stable for discharge home post day 1 Labs/Diagnostic Data: Laboratory Results Test 05/26/25 04:55 05/26/25 04:00 White Blood Count 11.1 10^3/uL (4.4-10.8) Red Blood Count 4.25 10^6/uL (4.0-5.20) Hemoglobin 12.7 g/dL (12.2-16.2) Hematocrit 36.5 % (36.0-46.0) Mean Corpuscular Volume 85.9 fL (80.0-100.0) Mean Corpuscular Hemoglobin 29.8 pg (28.0-32.0) Mean Corpuscular Hemoglobin Concent 34.7 g/dL (32.0-36.0) Red Cell Distribution Width 14.1 % (11.8-14.3) Platelet Count 228 10^3/uL (140-450) Mean Platelet Volume 8.5 fL (6.9-10.8) Neutrophils (%) (Auto) 70.9 % (37.0-80.0) Lymphocytes (%) (Auto) 22.3 % (10.0-50.0) Monocytes (%) (Auto) 5.8 % (0.0-12.0) Eosinophils (%) (Auto) 0.8 % (0.0-7.0) Basophils (%) (Auto) 0.2 % (0.0-2.0) Neutrophils # (Auto) 7.9 10 ^3/uL (1.6-8.6) Lymphocytes # (Auto) 2.5 10 ^3/uL (0.4-5.4) Monocytes # (Auto) 0.6 10 ^3/uL (0-1.3) Eosinophils # (Auto) 0.1 10 ^3/uL (0-0.8) Basophils # (Auto) 0 10 ^3/uL (0-0.2) Nucleated Red Blood Cells 0.2 % Prothrombin Time 9.7 sec (9.3-11.8) Prothrombin Time INR 0.91 (0.9-1.15) Activated Partial Thromboplast Time 27.4 SEC (24.5-34.5) Sodium Level 138 mmol/L (136-145) Potassium Level 3.7 mmol/L (3.5-5.1) Chloride Level 106 mmol/L (98-107) Carbon Dioxide Level 19 mmol/L (20-31) Anion Gap 13 (5-15) Blood Urea Nitrogen 7 mg/dL (9-23) Creatinine 0.36 mg/dL (0.550-1.02) Glomerular Filtration Rate Calc 144 mL/min (>90) BUN/Creatinine Ratio 19.4 (10.0-20.0) Serum Glucose 81 mg/dL (74-106) Calcium Level 8.7 mg/dL (8.7-10.4) Total Bilirubin 0.4 mg/dL (0.2-1.0) Aspartate Amino Transferase (AST) 9 U/L (13-40) Alanine Aminotransferase (ALT) < 9 U/L (7-40) Alkaline Phosphatase 211 U/L (46-116) Total Protein 7.3 g/dL (5.7-8.2) Albumin 3.8 g/dL (3.2-4.8) Treponema pallidum Antibody Non-reactive (Negative) Hepatitis C Antibody Negative (Negative) Urine Color Light-yellow (Yellow) Urine Clarity Turbid (Clear) Urine pH 7.0 (5.0-9.0) Urine Specific [place] 1.025 (1.001-1.035) Urine Protein Trace (Negative) Urine Ketones Negative (Negative) Urine Blood Trace /uL (Negative) Urine Nitrite Negative (Negative) Urine Bilirubin Negative (Negative) Urine Urobilinogen Normal mg/dL (Negative) Urine Leukocyte Esterase 1+ /uL (Negative) Urine RBC 17 /hpf (0 - 4) Urine Microscopic WBC 32 /HPF (0-5) Urine Squamous Epithelial Cells Mod /hpf (<5) Urine Bacteria None seen /hpf (None Seen) Urine Mucus Few (None Seen) Urine Glucose Normal mg/dL (Normal) Amniotic Fluid Ferning Test Positive Placental Ddctp-8-Pbdeptrdyelyu Positive Urine Opiates Screen Neg (NEGATIVE) Urine Fentanyl Screen Neg (NEGATIVE) Urine Barbiturates Screen Neg (NEGATIVE) Urine Phencyclidine Screen Neg (NEGATIVE) Urine Amphetamines Screen Neg (NEGATIVE) Urine Benzodiazepines Screen Neg (NEGATIVE) Urine Cocaine Screen Neg (NEGATIVE) Urine Cannabinoids Screen Neg (NEGATIVE) Other Laboratory Tests 05/26/25 04:55 Brief Hx & Hospital Course: no post complications Consults/Reason for consult None Operations or Procedures None Condition at Discharge: Good Final Diagnosis/Problems List Discharge Disposition: Home Discharge Instruct/Medications Diet: Regular Activity: Light activity Activity comment: Rest 6 weeks Follow Up/Referral: Primary OB MD / Medications: Resume home meds Scheduled Vit W/ Ferrous Fumara ( One Daily), 1 TAB PO DAILY, (Reported) Discharge Statement: "Patient was advised to return to the ER or call 911 if any headaches, dizziness, shortness of breath, chest pain, abdominal pain, bleeding, fevers, or worsening of medical condition. Patient was counseled about treatment plan, medications, possible side effects, patientverbalized understanding. All questions were answered to the best of my ability. This discharge took greater then 30 minutes in planning, reviewing documentation, counseling the patient, and discussing with other team members." ASSESSMENT ASSESSMENT Assessment Visit Coding OBGYN Date of Service: May 28, 2025 Billing Provider: ANDRES BARROS DO ENERGY INFRASTRUCTURE ENGINEER Common Visit Codes: [id number] INP/OBS CARE(HIGH), 69676-IOP/OBS SAME DATE (LOW), 17642-NBO/OBS SAME DATE (MOD) ENERGY INFRASTRUCTURE ENGINEER Procedure Codes: [id number] OB CARE,VAG DELIVERY ANDRES BARROS DO May 28, 2025 11:08
== END 2025-05-28 09:18 | disposition home or self-care (01) | DRG 560 ==
LOC: LDRP 03:13 → OBSVTOIN 04:25 → LDRP 04:35
PROVIDERS: ADMIT Obstetrics & Gynecology; ATTEND Obstetrics & Gynecology
PROC: 10E0XZZ Delivery of Products of Conception, External Approach (ICD-10-PCS; principal; 2025-05-27)
PROC: 0KQM0ZZ Repair Perineum Muscle, Open Approach (ICD-10-PCS; 2025-05-27)
PROC: 3E0R3BZ Introduction of Anesthetic Agent into Spinal Canal, Percutaneous Approach (ICD-10-PCS; 2025-05-27)
PROC: 00HU33Z Insertion of Infusion Device into Spinal Canal, Percutaneous Approach (ICD-10-PCS; 2025-05-27)
DX: O42.92 Full-term premature rupture of membranes, unspecified as to length of time between rupture and onset of labor (principal); Z37.0 Single live birth; K76.89 Other specified diseases of liver; O26.643 Intrahepatic cholestasis of pregnancy, third trimester; O76 Abnormality in fetal heart rate and rhythm complicating labor and delivery; Z3A.38 38 weeks gestation of pregnancy; O70.1 Second degree perineal laceration during delivery
CPT/HCPCS: 36415; 59409; 62282; 80053; 80307; 81001; 84112; 85025; 85610; 85730; 86780; 86803; 86850; 86900; 86901; 94760; 96360; 96361; 96365; 96366; G0378; J2590

== ENCOUNTER 2025-05-30 15:15 | Emergency (ER) | payer MEDICAID ==
[~2025-05-30] VITALS: Ht 157.5 cm; Wt 89.0 kg
[2025-05-30 15:18] VITALS: BP 149/86; RESP 17; TEMP 98.3; O2SAT 100
--- NOTE | 2025-05-30 15:25 | ECG ---
[facility] Test Date: 2025-05-30 Test Time: 15:19:35 Pat Name: MARICRUZ HARDING Department: ED Room: Gender: F Director Of Services: HEDY : 2000 Requested By: QUYEN DIALLO Order Number: [id number] Reading MD: Nicola Aguilar Measurements Intervals [place] Rate: 86 P: 65 ID: [id number] QRS: 68 QRSD: 98 T: 53 QT: 366 QTc: 438 Interpretive Statements Sinus rhythm RSR' in V1 or V2, right VCD or RVH Electronically Signed On 05-30-2025 18:02:24 PST by Nicola Aguilar Please click the below link to view image of tracing.
--- NOTE | 2025-05-30 15:39 | ED.PDOC ---
HPI Comments 24 year old female presents to the ED with a chief compliant of chest pain onset today. Patient states she woke up experiencing Lt sided, non radiating, chest pain, currently rates pain 4/10. Patient had vaginal delivery 2 days ago, DVH with Dr. Keen. She also noticed RT leg swelling. Denies fever, chills, headache, dizziness, nausea, vomiting, diarrhea, numbness/tingling, dysuria. No other symptoms or modifying factors present at this time. Chief Complaint: Chest Pain Time Seen by MD: 15:30 Reviewed Notes: Nurses Notes, Medications, Allergies Allergies: Coded Allergies: NO KNOWN ALLERGIES (Unverified , 05/26/25) Home Meds Reported Medications Vit W/ Ferrous Fumara ( One Daily) Daily Tab, 1 TAB PO DAILY, #90 TAB 3 Refills 04/28/25 Information Source: Patient Mode of Arrival: Ambulatory Severity: Moderate Timing: Hours Duration: Since onset Prehospital treatment: None Location: Chest (L) Radiation: No Radiation Quality: Sharp Onset: At Rest Cardiac Risk Factors: None PE Risk Factors: None History of: None Modifying Factors: Nothing Past Medical History PAST MEDICAL HISTORY: Denies Surgical History: Denies all surgeries MEDICAL RECEPTIONIST History: No Pertinent MEDICAL RECEPTIONIST History Family History Family History: Reviewed,noncontributory to illness, No family hx of Cancer, No family hx of DM, No family hx of Heart vaughn, No family hx of HTN, No family hx ofKidney vaughn, No family hx of Liver vaughn, No family hx of Lung vaughn, No family hx of Stroke Social History Smoker: Non-Smoker Alcohol: Denies ETOH Use Drugs: Denies Drug Use Lives In: Home Constitutional: denies: chills, diaphoresis, fatigue, fever, malaise, sweats, weakness, others EENTM: denies: blurred vision, double vision, ear bleeding, ear discharge, ear drainage, ear pain, ear ringing, eye pain, eye redness, hearing loss, mouth pain, mouth swelling, nasal discharge, nose bleeding, nose congestion, nose pain, photophobia, tearing, throat pain, throat swelling, voice changes, others Respiratory: denies: cough, hemoptysis, orthopnea, SOB at rest, shortness of breath, SOB with excertion, stridor, wheezing, others Cardiovascular: reports: chest pain; denies: dizzy spells, diaphoresis, Dyspnea on exertion, edema, irregular heart beat, left arm pain, lightheadedness, palpitations, PND, syncope, others Gastrointestinal: denies: abdomen distended, abdominal pain, blood streaked bowels, constipated, diarrhea, dysphagia, difficulty swallowing, hematemesis, melena, nausea, poor appetite, poor fluid intake, rectal bleeding, rectal pain, vomiting, others Genitourinary: denies: abnormal vagina bleeding, burning, dyspareunia, dysuria, flank pain, frequency, hematuria, incontinence, pain, , vagina discharge, urgency, others Neurological: denies: dizziness, fainting, headache, left sided numbness, left sided weakness, numbness, paresthesia, pre-existing deficit, right sided numb ness, right sided weakness, seizure, speech problems, tingling, tremors, weakness, others Musculoskeletal: reports: others (RT leg swelling); denies: back pain, gout, joint pain, joint swelling, muscle pain, muscle stiffness, neck pain Integumetry: denies: bruises, change in color, change in hair/nails, dryness, laceration, lesions, lumps, rash, wounds, others Allergic/Immunocompromised: denies: Difficulty Healing, Frequent Infections, Hives, Itching, others Hematologic/Lymphatic: denies: anemia, blood clots, easy bleeding, easy bruising, swollen glands, others Endocrine: denies: excessive hunger, excessive sweating, excessive thirst, excessive urination, flushing, intolerance to cold, intolerance to heat, unexplained weight gain, unexplained weight loss, others Psychiatric: denies: anxiety, bipolar disorder, depression, hopeless, panic disorder, schizophrenia, sleepless, suicidal, others All Other Systems: Reviewed and Negative Physical Exam General Appearance: Mild Distress HEENT: Normal ENT Inspection, Pharynx Normal, TMs Normal Neck: Full Range of Motion, Non-Tender, Normal, Normal Inspection Respiratory: Chest Non-Tender, Lungs Clear, No Accessory Muscle Use, No Respiratory Distress, Normal Breath Sounds Cardiovascular: No Edema, No JVD, No Murmur, No Gallop, Normal Peripheral Pulses, Regular Rate/Rhythm Breast Exam: Deferred Gastrointestinal: No Organomegaly, Non Tender, No Pulsatile Mass, Normal Bowel Sounds, Soft Genitalia: Deferred Pelvic: Deferred Rectal: Deferred Extremities: No calf tenderness, Normal capillary refill, Normal inspection, Normal range of motion, Non-tender, No pedal edema Musculoskeletal : Apperance: Normal Neurologic: Alert, pallet assembler II-XII nml as Tested, Motor Weakness, Normal Affect, Normal Mood, No Sensory Deficits Cerebellar Function: Normal Reflexes: Normal Skin: Dry, Normal Color, Warm Lymphatic: No Adenopathy Was a procedure done? Was a procedure done?: No CP Differential Dx Differential Diagnosis: Angina, [place], Pulmonary Embolus Differential Diagnosis: CHF X-Ray, Labs, Meds, VS Vital Signs Date Time Temp Pulse Resp B/P (MAP) Pulse Ox O2 Delivery O2 Flow Rate FiO2 05/30/25 16:21 79 05/30/25 15:19 86 05/30/25 15:18 98.3 84 17 149/86 100 98.3 Lab Test 05/30/25 16:42 05/30/25 15:32 Range/Units Troponin I High Sensitivity < 3 L < 3 L </=34 ng/L White Blood Count 10.5 4.4-10.8 10^3/uL Red Blood Count 3.97 L 4.0-5.20 10^6/uL Hemoglobin 11.9 L 12.2-16.2 g/dL Hematocrit 34.6 L 36.0-46.0 % Mean Corpuscular Volume 87.2 80.0-100.0 fL Mean Corpuscular Hemoglobin 30.0 28.0-32.0 pg Mean Corpuscular Hemoglobin Concent 34.4 32.0-36.0 g/dL Red Cell Distribution Width 14.4 H 11.8-14.3 % Platelet Count 268 140-450 10^3/uL Mean Platelet Volume 8.0 6.9-10.8 fL Neutrophils (%) (Auto) 69.9 37.0-80.0 % Lymphocytes (%) (Auto) 23.1 10.0-50.0 % Monocytes (%) (Auto) 4.3 0.0-12.0 % Eosinophils (%) (Auto) 2.3 0.0-7.0 % Basophils (%) (Auto) 0.4 0.0-2.0 % Neutrophils # (Auto) 7.3 1.6-8.6 10 ^3/uL Lymphocytes # (Auto) 2.4 0.4-5.4 10 ^3/uL Monocytes # (Auto) 0.4 0-1.3 10 ^3/uL Eosinophils # (Auto) 0.2 0-0.8 10 ^3/uL Basophils # (Auto) 0 0-0.2 10 ^3/uL Nucleated Red Blood Cells 0.0 % Prothrombin Time 9.5 9.3-11.8 sec Prothrombin Time INR 0.89 L 0.9-1.15 Activated Partial Thromboplast Time 26.9 24.5-34.5 SEC D-Dimer, Quantitative 1.23 H 0.0-0.49 mg/L FEU Sodium Level 142 136-145 mmol/L Potassium Level 4.3 3.5-5.1 mmol/L Chloride Level 104 98-107 mmol/L Carbon Dioxide Level 28 20-31 mmol/L Anion Gap 10 5-15 Blood Urea Nitrogen 7 L 9-23 mg/dL Creatinine 0.67 # 0.550-1.02 mg/dL Glomerular Filtration Rate Calc 124 >90 mL/min BUN/Creatinine Ratio 10.4 10.0-20.0 Serum Glucose 87 74-106 mg/dL Calcium Level 9.4 8.7-10.4 mg/dL Total Bilirubin 0.3 0.2-1.0 mg/dL Aspartate Amino Transferase (AST) 12 L 13-40 U/L Alanine Aminotransferase (ALT) 10 7-40 U/L Alkaline Phosphatase 154 H 46-116 U/L Total Protein 7.3 5.7-8.2 g/dL Albumin 3.9 3.2-4.8 g/dL The patient's CBC is within normal limits The chemistry panel is within normal limits The D-dimer is 1.23 The chemistry panel otherwise within normal limits The CAT scan of the chest is pending The patient will be signed out to Dr. Packer We are concerned about a possible PE Images Reviewed?: Images reviewed and evaluated by me Time of 1ST Reevaluation: 16:00 Reevaluation 1ST: Unchanged Patient Education/Counseling: Diagnosis, Treatment, Prognosis Family Education/Counseling: No Family Present SEPSIS Sepsis Screen Date sepsis recognized/suspect: May 30, 2025 Time Sepsis recognized/suspect: 1517 Recent Procedure: No On Antibiotic Therapy: No Respiratory Rate >20: No Heart Rate >90: No Temp<36 C (96.8 F) or >38.3 C: No SBP <90 or MAP <65 mmHG: No New Acute Mental Status Change: No Is the patient on CPAP, BIPAP,: No Physician Orders Chest Portable (05/30/25 15:22) Troponin-I Hs (05/30/25 18:22) Electrocardigram (05/30/25 18:22) Ct Angio Chest Contrast (05/30/25 17:04) Vital Signs Date Time Temp Pulse Resp B/P (MAP) Pulse Ox O2 Delivery O2 Flow Rate FiO2 05/30/25 16:21 79 05/30/25 15:19 86 05/30/25 15:18 98.3 84 17 149/86 100 98.3 Laboratory Tests Test 05/30/25 15:32 White Blood Count 10.5 10^3/uL (4.4-10.8) Departure 1 Departure Time of Disposition: 17:48 Impression: Primary Impression: Acute chest pain Disposition: 30 STILL A PATIENT Condition: Fair Critical Care Note Critical Care Time?: No Stability Stability form required: Yes Unstable for transfer: Telemetry monitoring (Telemetry monitoring required), ED Physician Assesment (Clinical assesment) Heart Score Heart Score: Heart Score Response (Comments) Value History N/A 0 EKG N/A 0 Age N/A 0 Risk Factors N/A 0 Troponin N/A 0 Total 0 I personally scribed for QUYEN DIALLO MD ([email or web address]) on 05/30/25 at 15:39. Electronically submitted by Aleida Tony ([email or web address]). QUYEN DIALLO MD May 30, 2025 15:39
[2025-05-30 15:49] LABS: Hematocrit 34.6 % (36.0-46.0); Hemoglobin 11.9 g/dL (12.2-16.2); Mean Corpuscular Hemoglobin 30.0 pg (28.0-32.0); Mean Corpuscular Volume 87.2 fL (80.0-100.0); Nucleated Red Blood Cells % 0.0 %
[2025-05-30 16:07] LABS: Alanine Aminotransferase 10 U/L (7-40); Albumin 3.9 g/dL (3.2-4.8); Alkaline Phosphatase 154 U/L (46-116); Anion Gap 10 (5-15); BUN/Creatinine Ratio 10.4 (10.0-20.0); Bilirubin, Total 0.3 mg/dL (0.2-1.0); Blood Urea Nitrogen 7 mg/dL (9-23); Calcium 9.4 mg/dL (8.7-10.4); Carbon Dioxide 28 mmol/L (20-31); Chloride 104 mmol/L (98-107); Glucose 87 mg/dL (74-106); Potassium 4.3 mmol/L (3.5-5.1); Sodium 142 mmol/L (136-145); Total Protein 7.3 g/dL (5.7-8.2)
[2025-05-30 16:21] VITALS: PULSE 79
--- NOTE | 2025-05-30 16:22 | ECG ---
[facility] Test Date: 2025-05-30 Test Time: 16:21:22 Pat Name: MARICRUZ HARDING Department: ED Room: Gender: F Plant Director: williams : 2000 Requested By: QUYEN DIALLO Order Number: [id number] Reading MD: Nicoal Aguilar Measurements Intervals [place] Rate: 79 P: 63 AK: 175 QRS: 76 QRSD: 100 T: 49 QT: 380 QTc: 436 Interpretive Statements Sinus rhythm Electronically Signed On 05-30-2025 18:02:42 PST by Nicola Aguilar Please click the below link to view image of tracing.
[2025-05-30 16:51] LABS: INR 0.89 (0.9-1.15); Partial Thromboplastin Time 26.9 SEC (24.5-34.5); Prothrombin Time 9.5 sec (9.3-11.8)
[2025-05-30] MEDS ORDERED: IOHEXOL 350 MG/ML 100ML IJ ONE (17:39)
== END 2025-05-30 21:42 | disposition left against medical advice (07) ==
LOC: ER 15:15
DX: R07.89 Other chest pain (principal)
CPT/HCPCS: 36415; 80053; 84484; 85025; 85379; 85610; 85730; 93005